=== PATIENT | male | born 1960 | race Caucasian/White ===

== ENCOUNTER 2018-04-21 08:48 | Emergency (ER) | payer OTHER, SELFPAY ==
[2018-04-21 09:02] VITALS: BP 132/65; PULSE 57; RESP 16; TEMP 36.4; O2SAT 100; BMI 32.5
--- NOTE | 2018-04-21 09:03 | ED.ARRPALP ---
HPI - Arrhythmia/Palpitations General Chief Complaint: Dizziness Stated Complaint: DIZZY THEN PASSED OUT Time Seen by Provider: 04/21/18 08:53 Source: patient Mode of arrival: ambulatory Limitations: no limitations History of Present Illness HPI narrative: Patient is a 58-year-old male who presents with heart palpitations. He said he felt his heart was fluttering this morning. He the stood up felt extremely off balance could not walk fell to the ground did not pass out. Tried to get up but could not and then tried again and was able to get up. He is not dizzy lightheaded he has no chest discomfort now he no longer feels palpitations. He denies drinking alcohol last night. He had no speech difficulty no unilateral weakness MD complaint: palpitations Related Data Allergies Allergy/AdvReac Type Severity Reaction Status Date / Time No Known Drug Allergies Allergy Verified 04/21/18 09:14 Review of Systems Review of Systems All systems reviewed & are unremarkable except as noted in HPI and below Constitutional Denies chills, Denies fever(s), Denies lethargy and Denies weakness Eyes Denies blurry vision and Denies diplopia Cardiovascular Denies chest pain, Denies syncope, Denies irregular heart rhythm, Reports lightheadedness, Reports palpitations, Denies dyspnea, Denies dyspnea on exertion and Denies orthopnea Respiratory Denies cough, Denies dyspnea, Denies dyspnea on exertion and Denies wheezing Gastrointestinal Gastrointestinal: Denies abdominal pain, Denies change in bowel habits, Denies diarrhea, Denies nausea and Denies vomiting Musculoskeletal Denies back pain and Denies muscle weakness Integumentary/Breasts Denies pruritus, Denies erythema, Denies rash and Denies wounds Neurologic Reports as per HPI, Denies syncope, Denies tremor(s) and Denies weakness Endocrine Reports palpitations Allergic/Immunologic Denies wheezing PFSH Medical History Hyperlipidemia (Acute) Surgical History H/O partial thyroidectomy (Acute) Social History Smoking Status: Never smoker Exam Initial Vital Signs Initial Vital Signs: Vital Signs Temperature 97.5 F L 04/21/18 09:02 Pulse Rate 57 L 04/21/18 09:02 Respiratory Rate 16 04/21/18 09:02 Blood Pressure 132/65 04/21/18 09:02 Pulse Oximetry 100 04/21/18 09:02 GENERAL: Well-appearing, well-nourished and in no acute distress. HEENT: Head atraumatic,EOMI, pupils reactive, face symmetric, moist mucous membranes, neck is supple CARDIOVASCULAR: Regular rate and rhythm without murmurs, rubs or gallops. RESPIRATORY: Breath sounds equal bilaterally, no wheezes rales or rhonchi. ABDOMEN: Soft, nontender. Normoactive bowel sounds all 4 quadrants. No guarding or rebound. EXTREMITIES: Normal range of motion, no clubbing or edema. Neurovascularly intact NEUROLOGICAL: Alert and oriented x4.Normal gait and speech. Cranial nerves II through XII grossly intact. Good [id number], good [id number], strength equal bilaterally, no dysarthria or aphasia, sensation in tact to soft touch bilaterally, no visual changes, no facial droop SKIN: Warm, dry, no laceration, no petechiae, no rashes or lesions. Scores NIH Stroke Scale Level of Conciousness: Alert, keenly responsive Ask month/age: Answers both questions correctly. Open/close eyes, close hand: Performs both tasks correctly Best gaze horizontal: Normal Visual mendez: No visual loss Facial palsy: Normal symetrical movement Left arm drift: No drift for full 10 sec Right arm drift: No drift for full 10 sec Left leg drift: No drift for full 10 sec Right leg drift: No drift for full 10 sec Limb ataxia: Absent Sensory on face/arms/legs: Normal, no sensory loss Best language: No aphasia, normal Dysarthria: Normal Extinction or inattention: No abnormality Total NIH Stroke scale score: 0 Course Orders Ordered: ED Orders 04/21/18 08:54 EKG-12 Lead Routine 04/21/18 09:02 XR chest 1V Stat 04/21/18 09:08 Complete Blood Count AUTO DIFF Stat Comprehensive Metabolic Panel Stat Troponin & CK Cardiac Panel Stat Discontinued Medications Aspirin (Aspirin Ec) 244 mg PO NOW ONE Stop: 04/21/18 09:02 Last Admin: 04/21/18 09:11 Dose: 244 mg Sodium Chloride (Normal Saline 0.9%) 1,000 mls @ 1,000 mls/hr IV CONT BRITTNI Last Infusion: 04/21/18 10:45 Dose: 0 mls/hr Admin: 04/21/18 09:11 Dose: 1,000 mls/hr Vital Signs - 8 hr 12/25/18 09:02 04/21/18 09:45 04/21/18 10:45 Temperature 97.5 F L Pulse Rate 57 L 57 L Pulse Rate [Orthostatic Lying] 48 L Pulse Rate [Orthostatic Standing] 68 Respiratory Rate 16 17 Blood Pressure 132/65 120/80 Blood Pressure [Orthostatic Lying] 106/68 Blood Pressure [Orthostatic Standing] 124/73 Pulse Oximetry 100 100 MDM - Arrhythmia/Palpitations Lab Data Attestation: I reviewed the patient's lab results. Result diagrams: 04/21/18 09:08 04/21/18 09:08 Lab Results 04/21/18 04/21/18 04/21/18 Range/Units 09:08 09:08 Unknown WBC 6.0 (4.5-11.0) X10^3/uL RBC 4.61 (4.5-5.9) X10^6/uL Hgb 14.4 (13.5-17.5) g/dL Hct 42.6 (41-53) % MCV 92.3 (80-100) fL MCH 31.1 (26-34) PG MCHC 33.7 (30-36) % RDW 12.9 (11.6-14.8) % Plt Count 239 (150-400) X10^3/uL Neut % (Auto) 64.4 (50-75) % Lymph % (Auto) 19.7 L (25-40) % [place] % (Auto) 9.6 (3-14) % Eos % (Auto) 5.5 H (2-4) % Baso % (Auto) 0.8 (0-2) % Neut # (Auto) 3900 (8310-6358) /uL Sodium 140 (137-145) mmol/L Potassium 4.5 (3.4-5.1) mmol/L Chloride 101 (98-107) mmol/L Carbon Dioxide 26 (22-32) mmol/L BUN 19 (9-20) mg/dL Creatinine 1.10 (0.66-1.25) mg/dL Estimated GFR > 60.0 (>60) mL/min BUN/Creatinine Ratio 17.3 (6-22) Glucose 107 H (70-100) mg/dL Calcium 9.3 (8.4-10.2) mg/dL Total Bilirubin 1.1 (0.2-1.3) mg/dL AST 49 (17-59) IU/L ALT 43 (21-72) IU/L Alkaline Phosphatase 49 (38-126) U/L Total Creatine Kinase 688 H (55-170) U/L CK-MB (CK-2) 6.38 H (<2.37) ng/mL CK-MB (CK-2) Rel Index 0.9 L (1.5-5.0) % Troponin I < 0.012 (0.01-0.034) ng/mL Total Protein 7.6 (6.3-8.2) g/dL Albumin 4.6 (3.5-5.0) g/dL Globulin 3.0 (1.7-4.1) g/dL Albumin/Globulin Ratio 1.5 (1.0-2.8) TSH 2.75 (0.47-4.68) uIU/mL Point of Care Testing Glucose POC 95 Imaging Data Chest x-ray: Radiologist's impression: PROCEDURE: XR CHEST 1V INDICATIONS: chest pain TECHNIQUE: One view of the chest was acquired. COMPARISON: None. FINDINGS: Surgical changes and devices: None. Lungs and pleura: No pleural effusions or pneumothorax. Lungs are clear. Mediastinum: Mediastinal contours appear normal. Heart size is normal. Bones and chest wall: No suspicious bony lesions. Overlying soft tissues appear unremarkable. IMPRESSION: No acute cardiopulmonary pathology. Dictated by: Pedro Hartman M.D. on 04/21/2018 at 9:44 ECG Data Attestation: I personally reviewed and interpreted this ECG as follows: Prior ECG tracings: not available for review Interpretation: Normal sinus rhythm rate [address] changes no T-wave inversions CO interval 167 no priors to compare MDM Narrative Medical decision making narrative: Patient overall is feeling better.. Orthostatics are negative. Slightly elevated CPK. Recommend increase fluids. He received 1 L of IV fluids Discharge Plan Departure Patient Disposition: Home Clinical Impression: Heart palpitations Discharge Date/Time: 04/21/18 10:53 Interventions: ED Discharge Assessment Last Done: 04/21/18 10:45 Instructions: DI for Syncope in Adults (Fainting), DI for Arrhythmias Activity Restrictions/Additional Instructions: *You have been diagnosed with heart palpitations pain *What to do: Increase fluid intake with water or Gatorade today *Continue to take medications as directed *Follow up with your primary care provider in 2-3 days *Return to ER if you should have heart palpitations, passing out, chest pain, shortness of breath or any new, worsening or concerning symptoms Referrals: Lenard Lockwood MD [Primary Care Provider] -
[2018-04-21] MEDS: SODIUM CHLORIDE 0.9% 1,000 ML 1000 ML IV (09:11)
[2018-04-21] MEDS: ASPIRIN EC 325 MG TABLET 244 MG PO (09:11)
[2018-04-21 09:15] LABS: Add Manual Diff / Slide Review NO; Basophils Percent Auto 0.8 % (0-2); Eosinophils Percent Auto 5.5 % (2-4); Hematocrit 42.6 % (41-53); Hemoglobin 14.4 g/dL (13.5-17.5); Lymphocytes Percent Auto 19.7 % (25-40); Mean Corpuscular HGB Conc 33.7 % (30-36); Mean Corpuscular Hemoglobin 31.1 PG (26-34); Mean Corpuscular Volume 92.3 fL (80-100); Monocytes Percent Auto 9.6 % (3-14); Neutrophils Absolute Auto 3900 /uL (1500-7000); Neutrophils Percent Auto 64.4 % (50-75); Platelet Count 239 X10^3/uL (150-400); Red Blood Cell Count 4.61 X10^6/uL (4.5-5.9); Red Cell Distribution Width 12.9 % (11.6-14.8)
[2018-04-21 09:30] LABS: Alanine Aminotransferase 43 IU/L (21-72); Albumin 4.6 g/dL (3.5-5.0); Albumin Globulin Ratio 1.5 (1.0-2.8); Alkaline Phosphatase 49 U/L (38-126); Aspartate Aminotransferase 49 IU/L (17-59); BUN Creatinine Ratio 17.3 (6-22); Bilirubin Total 1.1 mg/dL (0.2-1.3); Blood Urea Nitrogen 19 mg/dL (9-20); Calcium 9.3 mg/dL (8.4-10.2); Carbon Dioxide 26 mmol/L (22-32); Chloride 101 mmol/L (98-107); Creatine Kinase 688 U/L (55-170); Estimated Glomerular Filt Rate > 60.0 mL/min (>60); Glucose 107 mg/dL (70-100); HEMOLYSIS 15 (0-50); Potassium 4.5 mmol/L (3.4-5.1); Sodium 140 mmol/L (137-145); Total Protein 7.6 g/dL (6.3-8.2)
[2018-04-21 09:42] LABS: Troponin I < 0.012 ng/mL (0.01-0.034)
[2018-04-21 09:45] VITALS: BP 106/68; BP 124/73; PULSE 48; PULSE 68
[2018-04-21 09:59] LABS: CKMB % Relative Index 0.9 % (1.5-5.0); Creatine Kinase MB 6.38 ng/mL (<2.37)
[2018-04-21 10:25] LABS: Thyroid Stimulating Hormone 2.75 uIU/mL (0.47-4.68)
[2018-04-21 10:45] VITALS: BP 120/80; PULSE 57; RESP 17; O2SAT 100
== END 2018-04-21 10:53 | disposition home or self-care (01) ==
PROVIDERS: Emergency Provider Emergency Medicine; Family Provider Family Medicine; PCP Family Medicine
DX: R00.2 Palpitations (principal)
CPT/HCPCS: 71045; 80053; 82550; 82553; 82962; 84443; 84484; 85025; 93005; 96360; 96361; 99283; 99285

== ENCOUNTER → 2020-08-04 14:59 | Outpatient (CLI) | payer OTHER, SELFPAY ==
[2020-08-04] MEDS: COVID-19 VACC, Ad26(JANSSEN)/PF 0.5 ML IM (15:06)
== END ==
PROVIDERS: Family Provider Family Medicine; PCP Family Medicine; Visit Provider Internal Medicine
DX: Z23 Encounter for immunization (principal)
CPT/HCPCS: 0031A; 91303